=== PATIENT | male | born 2000 | race Hispanic/Latino ===

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

== ENCOUNTER 2024-09-29 18:36 | Emergency (ER) | payer SELFPAY ==
[~2024-09-29 18:36] MED LIST: Iopamidol-370 76% 500 ML MDV (1 ML CHARGE) ONE
[2024-09-29] MEDS ORDERED: Acetaminophen 500 MG TAB ONE (20:06)
[2024-09-29] MEDS ORDERED: Ketorolac Tromethamine 30 MG (1 mL) VIAL ONE (20:06)
[2024-09-29 20:53] LABS: Bacteria/HPF None Seen HPF (None Seen); Bilirubin Negative (Negative); Blood, Urine Negative (Negative); CAUTI Indications for Culture Dysuria,urgency,freq; Clarity Clear (Clear); Glucose, Urine (Dipstick) Normal (Negative); Ketone, Urine Negative (Negative); Leukocyte Negative Leu/uL (Negative); Nitrite Negative (Negative); Protein, Urine (Dipstick) Negative (Neg-Trace); RBC/HPF 0-3 HPF (0-3); Specific Gravity, Urine 1.016 (1.002-1.036); Squamous Epithelial None Seen HPF (0-3); Urobilinogen Normal mg/dL (Less than 2); WBC/HPF 0-3 HPF (0-3)
[2024-09-29 20:55] LABS: Urine Culture Reflex No No
[2024-09-29] MEDS ORDERED: HYDROcodone/Acetaminophen 5/325 mg Tablet ONE (22:04)
[2024-09-29 22:14] LABS: #Basophils 0.04 10x3/uL (0.0-0.2); %Basophils 0.4 % (0.0-1.0); %Eosinophils 2.8 % (0.0-10.0); %Lymphocytes 22.1 % (21.0-51.0); %Monocytes 5.7 % (0.0-10.0); %Neutrophils 68.8 % (42.0-75.0); Hematocrit 43.2 % (42.0-52.0); Hemoglobin 14.4 g/dL (14.0-18.0); Mean Corpuscular HGB CONC 33.3 g/dL (32.0-36.0); Mean Corpuscular Hemoglobin 30.1 pg (27.0-31.0); Mean Corpuscular Volume 90.4 fL (78.0-98.0); Platelet Count 314 10x3/uL (130-400); RBC Distribution Width 11.7 % (11.5-14.5); Red Blood Cell (RBC) Count 4.78 mill/uL (4.70-6.10)
[2024-09-29 22:39] LABS: ALT (SGPT) 12 U/L (8-55); AST (SGOT) 13 U/L (5-34); Albumin 4.2 g/dL (3.5-5.0); Alkaline Phosphatase 77 U/L (40-110); Anion Gap 14 mmol/L (10-20); BUN (Urea Nitrogen) 9 mg/dL (8.9-20.6); Bilirubin, Total 0.6 mg/dL (0.2-1.2); Calcium 9.1 mg/dL (7.8-10.44); Carbon Dioxide 28 mmol/L (22-29); Chloride 103 mmol/L (98-107); Globulin 3.3 g/dL (2.4-3.5); Glucose 92 mg/dL (70-105); Lipase 40 U/L (8-78); Potassium 4.2 mmol/L (3.5-5.1); Protein, Total 7.5 g/dL (6.0-8.3); Sodium 141 mmol/L (136-145)
[2024-09-29 22:57] LABS: Calc. Creatinine Clearance 0 mL/min (70-130); Estimated GFR 118
== END 2024-09-29 23:41 | disposition home or self-care (01) ==
LOC: ERS 18:36
DX: R10.84 Generalized abdominal pain (principal); V49.40XA Driver injured in collision with unspecified motor vehicles in traffic accident, initial encounter
CPT/HCPCS: 36415; 71046; 72125; 74177; 80053; 81001; 83690; 85025; 87428; 96372; J1885; Q9967

== ENCOUNTER 2024-10-03 07:25 | Inpatient (IN) | payer SELFPAY ==
[2024-10-03] MEDS ORDERED: Lorazepam 2 MG/ML VIAL ONE ×2 (07:28→07:30)
[2024-10-03] MEDS ORDERED: Midazolam HCl 2 mg/2 ml Vial ONE (07:32)
[2024-10-03] MEDS ORDERED: Rocuronium Bromide 10 MG/ML (10ML VIAL) ONE (07:35)
[2024-10-03] MEDS ORDERED: levETIRAcetam 500 MG (5 mL) VIAL ONE (07:38)
[2024-10-03] MEDS ORDERED: Propofol 1,000 MG/100 ML VIAL IV ONE (07:40)
[2024-10-03 07:58] LABS: #Basophils 0.07 10x3/uL (0.0-0.2); %Basophils 0.4 % (0.0-1.0); %Eosinophils 1.5 % (0.0-10.0); %Lymphocytes 19.6 % (21.0-51.0); %Monocytes 2.4 % (0.0-10.0); %Neutrophils 74.6 % (42.0-75.0); Hematocrit 47.5 % (42.0-52.0); Hemoglobin 15.6 g/dL (14.0-18.0); Mean Corpuscular HGB CONC 32.8 g/dL (32.0-36.0); Mean Corpuscular Hemoglobin 30.7 pg (27.0-31.0); Mean Corpuscular Volume 93.5 fL (78.0-98.0); Platelet Count 381 10x3/uL (130-400); RBC Distribution Width 11.6 % (11.5-14.5); Red Blood Cell (RBC) Count 5.08 mill/uL (4.70-6.10)
[2024-10-03 08:13] LABS: Bilirubin Negative (Negative); Blood, Urine Negative (Negative); Glucose, Urine (Dipstick) 500 mg/dL (Negative); Ketone, Urine Negative (Negative); Leukocyte Negative (Negative); Nitrite Negative (Negative); Protein, Urine (Dipstick) 100 mg/dL (Neg-Trace); Specific Gravity, Urine 1.025 (1.005-1.030); Urobilinogen 0.2 mg/dL (Less than 2)
[2024-10-03 08:17] LABS: Clarity Clear (Clear)
[2024-10-03 08:17] LABS: Acetaminophen Less than 10 mcg/mL (Less than 10); Alcohol Less than 10.0 mg/dL (Less than 10); Salicylate Less than 8.0 mg/dL (Less than 8.0)
[2024-10-03 08:21] LABS: Actual Bicarbonate (HCO3a) 18.4 mEq/L (22-28); Analyzer IN Cardio ER; Base Excess (BEa) -6.4 mEq/L (-2.0 to +3.0); CO2 Tension 34.7 mmHg (35.0-45.0); Calcium, Ionized (arterial) 1.15 mmol/L (1.12-1.30); Carboxyhemoglobin (COHb) 0.7 gm% (0.0-3.0); Hematocrit-ABG 43 % (42.0-52.0); Hemoglobin (Hb) 14.6 g/dL (14.0-18.0); O2 Tension (PaO2), arterial 186.8 mmHg (80.0-100.0); Potassium - ABG Lab 3.92 mmol/L (3.70-5.30); pH, Arterial 7.342 (7.35-7.45)
[2024-10-03 08:22] LABS: ALV-art Gradient 55.025 mmHg (0-20); Puncture Site Left Radial artery
[2024-10-03 08:24] LABS: Amphetamine Not Detected (NotDetected); Barbiturates Screen Not Detected (NotDetected); Benzodiazepine Screen Detected (NotDetected); Cocaine Metabolite Screen Detected (NotDetected); Methadone Not Detected (NotDetected); Methamphetamine Not Detected (NotDetected); Opiate Screen Not Detected (NotDetected); Oxycodone Screen Not Detected (NotDetected); Phencyclidine (PCP) Not Detected (NotDetected); THC/Cannabinoid Screen Detected (NotDetected); Tricyclic Screen Not Detected (NotDetected)
[2024-10-03 08:24] LABS: ALT (SGPT) 14 U/L (8-55); AST (SGOT) 17 U/L (5-34); Albumin 4.3 g/dL (3.5-5.0); Alkaline Phosphatase 89 U/L (40-110); Anion Gap 22 mmol/L (10-20); BUN (Urea Nitrogen) 16 mg/dL (8.9-20.6); Bilirubin, Total 0.4 mg/dL (0.2-1.2); CK (CPK) 209 U/L (30-200); Calc. Creatinine Clearance 0 mL/min (70-130); Calcium 9.3 mg/dL (7.8-10.44); Carbon Dioxide 23 mmol/L (22-29); Chloride 101 mmol/L (98-107); Estimated GFR 51; Globulin 3.6 g/dL (2.4-3.5); Glucose 416 mg/dL (70-105); Potassium 5.3 mmol/L (3.5-5.1); Protein, Total 7.9 g/dL (6.0-8.3); Sodium 141 mmol/L (136-145)
[2024-10-03 08:40] LABS: RBC/HPF 0-3 HPF (0-3)
[2024-10-03 08:41] LABS: Bacteria/HPF Rare-Few HPF (None Seen); CAUTI Indications for Culture Fever or rigors; Mucous/LPF Few LPF (<2+); Squamous Epithelial 0-3 HPF (0-3); WBC/HPF 0-3 HPF (0-3)
[2024-10-03 08:42] LABS: Urine Culture Reflex No No
[2024-10-03] MEDS ORDERED: Piperacillin/Tazobactam 3.375 GM VIAL ONE (09:09)
[2024-10-03] MEDS ORDERED: Sodium Chloride 0.9% 100 ML ONE (09:09)
[2024-10-03] MEDS ORDERED: Acetaminophen 325 MG TAB PO PRN (10:10)
[2024-10-03] MEDS ORDERED: Dextrose 50% Abboject 50 ML SYRINGE SLOW IVP PRN ×2 (10:14→10:16)
[2024-10-03] MEDS ORDERED: Dextrose 5% in Water 1,000 ML IV PRN (10:16)
[2024-10-03] MEDS ORDERED: Glucagon 1 MG/ML KIT IM PRN (10:16)
[2024-10-03] MEDS ORDERED: Insulin Lispro 100 UNIT/ML 10 ML VIAL SC PRN (10:16)
[2024-10-03 10:33] LABS: HBsAg Index 0.23 S/CO (0-0.99); Hep A IgM AB NONREACTIVE (NonReactive); Hep A IgM S/CO 0.24 S/CO (0-0.79); Hep B Core IgM Index 0.09 S/CO (0-0.79); Hep B Surf Ag NONREACTIVE S/CO (NonReactive); Hep C IgG Ab NONREACTIVE S/CO (NonReactive); Hep C Index 0.15 S/CO (0-0.79); Hepatitis B Core IgM Abs NONREACTIVE S/CO (NonReactive)
[2024-10-03 13:06] LABS: Lactic Acid 2.51 mmol/L (0.5-2.2)
[2024-10-03] MEDS: Heparin 5,000 UNITS/ML VIAL SC SCH (15:00)
[2024-10-03 15:03] VITALS: BMI 24.0
[2024-10-03] MEDS ORDERED: Iopamidol-370 76% 500 ML MDV (1 ML CHARGE) ONE (15:10)
[2024-10-03] MEDS: Lorazepam 2 MG/ML VIAL SLOW IVP SCH (15:47)
[2024-10-03] MEDS ORDERED: Ventilator Sedation Protocol FS SCH (17:15)
[2024-10-03] MEDS ORDERED: Lorazepam 2 MG/ML VIAL SLOW IVP PRN (17:30)
[2024-10-03] MEDS ORDERED: Fentanyl CADD 100 ML IV SCH (17:30)
[2024-10-03] MEDS ORDERED: Propofol BOLUS 1,000 MG/100 ML VIAL IV PRN (17:30)
[2024-10-03] MEDS ORDERED: DISCONTINUE PREVIOUS NARCOTIC PAIN MEDICATIONS AND BENZODIAZEPINES FS SCH (17:30)
[2024-10-03] MEDS ORDERED: Fentanyl BOLUS 250 ML IVPB PRN (17:30)
[2024-10-03] MEDS ORDERED: Morphine 2 MG/ML VIAL SLOW IVP PRN (17:30)
[2024-10-03] MEDS: Propofol 1,000 MG/100 ML VIAL IV PRN (17:45)
[2024-10-03] MEDS: Piperacillin/Tazobactam 3.375 GM in Sodium Chloride 0.9% 100 ML IVPB SCH (17:45)
[2024-10-03 18:44] LABS: Lactic Acid 0.92 mmol/L (0.5-2.2)
[2024-10-03 18:46] LABS: Anion Gap 12 mmol/L (10-20); BUN (Urea Nitrogen) 12 mg/dL (8.9-20.6); Calc. Creatinine Clearance 115 mL/min (70-130); Calcium 8.4 mg/dL (7.8-10.44); Carbon Dioxide 18 mmol/L (22-29); Chloride 115 mmol/L (98-107); Estimated GFR 115; Glucose 71 mg/dL (70-105); Sodium 142 mmol/L (136-145)
[2024-10-03] MEDS ORDERED: Electrolyte Replacement Protocol FS SCH (19:32)
[2024-10-03] MEDS: Insulin Regular, Human 100 UNIT/ML 10 ML VIAL IVP SCH (19:56)
[2024-10-03] MEDS: Famotidine/PF 20 mg/2ml Vial SLOW IVP SCH (20:13)
[2024-10-03] MEDS: Sodium Chloride 0.9% 1,000 ML IV SCH (20:13)
[2024-10-03] MEDS: levETIRAcetam 500 MG (5 mL) VIAL SLOW IVP SCH (20:13)
[2024-10-03] MEDS: Potassium Chloride 20 MEQ in Premix 1 BAG IVPB SCH (21:07)
[2024-10-04 03:07] LABS: #Basophils 0.05 10x3/uL (0.0-0.2); %Basophils 0.5 % (0.0-1.0); %Eosinophils 2.5 % (0.0-10.0); %Monocytes 5.8 % (0.0-10.0); Hematocrit 34.8 % (42.0-52.0); Hemoglobin 12.2 g/dL (14.0-18.0); Mean Corpuscular HGB CONC 35.1 g/dL (32.0-36.0); Mean Corpuscular Hemoglobin 30.7 pg (27.0-31.0); Mean Corpuscular Volume 87.7 fL (78.0-98.0); Mean Platelet Volume 8.9 fL (7.4-10.4); Platelet Count 267 10x3/uL (130-400); RBC Distribution Width 11.9 % (11.5-14.5); Red Blood Cell (RBC) Count 3.97 mill/uL (4.70-6.10)
[2024-10-04 03:24] LABS: A1c 107.404 g/dL; Hb (HGBA1c) 3237.764 umol/L; Hemoglobin A1c 5.2 % (4.0-6.0)
[2024-10-04 04:25] LABS: Anion Gap 15 mmol/L (10-20); BUN (Urea Nitrogen) 11 mg/dL (8.9-20.6); CK (CPK) 127 U/L (30-200); Calc. Creatinine Clearance 103 mL/min (70-130); Calcium 8.2 mg/dL (7.8-10.44); Carbon Dioxide 15 mmol/L (22-29); Chloride 116 mmol/L (98-107); Estimated GFR 101; Glucose 75 mg/dL (70-105); Sodium 142 mmol/L (136-145)
[2024-10-04 07:10] LABS: Base Excess (BEa) -5.4 mEq/L (-2.0 to +3.0); Calcium, Ionized (arterial) 1.19 mmol/L (1.12-1.30); Carboxyhemoglobin (COHb) 0.1 gm% (0.0-3.0); Hematocrit-ABG 39 % (42.0-52.0); Hemoglobin (Hb) 13.3 g/dL (14.0-18.0); O2 Tension (PaO2), arterial 201.7 mmHg (80.0-100.0); Potassium - ABG Lab 3.76 mmol/L (3.70-5.30); pH, Arterial 7.481 (7.35-7.45)
[2024-10-04 07:23] LABS: ALV-art Gradient 56.125 mmHg (0-20); CO2 Tension 21.9 mmHg (35.0-45.0); Puncture Site Right Radial artery
[2024-10-04] MEDS ORDERED: Lorazepam 1 MG TAB PO PRN (08:06)
[2024-10-04] MEDS ORDERED: DC Sedation Protocol FS SCH (08:06)
[2024-10-04 09:30] VITALS: BMI 24.1
[2024-10-04] MEDS: Lorazepam 2 MG/ML VIAL SLOW IVP SCH (12:30)
[2024-10-04] MEDS ORDERED: Lorazepam 2 MG/ML VIAL SLOW IVP PRN (16:51)
[2024-10-05 04:27] LABS: #Basophils 0.06 10x3/uL (0.0-0.2); %Basophils 0.7 % (0.0-1.0); %Lymphocytes 34.1 % (21.0-51.0); %Monocytes 6.5 % (0.0-10.0); %Neutrophils 53.5 % (42.0-75.0); Hemoglobin 13.9 g/dL (14.0-18.0); Mean Corpuscular HGB CONC 34.8 g/dL (32.0-36.0); Mean Corpuscular Volume 89.1 fL (78.0-98.0); Mean Platelet Volume 9.2 fL (7.4-10.4); Platelet Count 292 10x3/uL (130-400); RBC Distribution Width 11.8 % (11.5-14.5); Red Blood Cell (RBC) Count 4.49 mill/uL (4.70-6.10)
[2024-10-05 04:33] LABS: Actual Bicarbonate (HCO3v) 22.1 mEq/L (22-28); Base Excess -1.7 mEq/L (-2.0 to +3.0); Chloride (VBG) 108 mmol/L (98-106); Hematocrit-VBG 43 % (42.0-52.0); Hemoglobin (Hb) 14.5 g/dL (13.2-17.3); Potassium (VBG) 3.73 mmol/L (3.70-5.30); Sodium 143 mmol/L (133-146)
[2024-10-05 11:48] VITALS: BP 130/93; TEMP 98.1
== END 2024-10-05 13:49 | disposition home or self-care (01) | DRG 917 ==
LOC: ERS 07:25 → CCU 12:50 → 2SE 10-04 10:06
PROVIDERS: ADMIT Internal Medicine; ATTEND Internal Medicine
PROC: 0BH17EZ Insertion of Endotracheal Airway into Trachea, Via Natural or Artificial Opening (ICD-10-PCS; principal; 2024-10-03)
DX: T42.4X1A Poisoning by benzodiazepines, accidental (unintentional), initial encounter (principal); J69.0 Pneumonitis due to inhalation of food and vomit; J96.01 Acute respiratory failure with hypoxia; N17.9 Acute kidney failure, unspecified; T40.5X1A Poisoning by cocaine, accidental (unintentional), initial encounter; T40.711A Poisoning by cannabis, accidental (unintentional), initial encounter
CPT/HCPCS: 31500; 36415; 36416; 36600; 51702; 70450; 71045; 74177; 80048; 80053; 80074; 80306; 80307; 81001; 82550; 82805; 83036; 83605; 83690; 84146; 84443; 85025; 87040; 93005; 94002; 94003; 96374; 96375; J1644; J1953; J2060; J2250; J2543; J2704; J3480; J3490; J7030; Q9967

== ENCOUNTER 2024-11-07 03:45 | Emergency (ER) | payer SELFPAY ==
[2024-11-07] MEDS ORDERED: Fluorescein Opthalmic Strip ONE (04:48)
[2024-11-07] MEDS ORDERED: Proparacaine 0.5% Opth 15 ML BOT ONE (04:49)
== END 2024-11-07 05:39 | disposition home or self-care (01) ==
LOC: ERS 03:45
DX: H16.133 Photokeratitis, bilateral (principal)
CPT/HCPCS: 99283